=== PATIENT | female | born 1955 | race Caucasian/White ===

== ENCOUNTER 2022-03-07 15:07 | Inpatient (IN) | payer MEDICARE ==
[~2022-03-07] VITALS: Ht 170.2 cm; Wt 77.0 kg
[2022-03-07] VITALS (15 sets, daily range): BP systolic 83–139; BP diastolic 37–95
--- NOTE | 2022-03-07 15:19 | NUR ---
PATIENT TO ROOM 14 VIA EMS
--- NOTE | 2022-03-07 15:57 | NUR ---
PATIENT ARRIVED TO ED WITH C/O CHEST PRESSURE SINCE YESTERDAY. PATIENT STATED CHEST PRESSURE IS LOCATED MIDSTERNAL. PATIENT STATED SHE HAS NOT EATEN IN ABOUT THREE DAYS
[2022-03-07] MEDS ORDERED: METOPROLOL SUCC50 MG PO (16:01)
[2022-03-07] MEDS ORDERED: METOPROL TAR100 MG PO (16:04)
[2022-03-07] MEDS ORDERED: LIPITOR40 M1 PO (16:06)
[2022-03-07] MEDS ORDERED: LEVOTHYROXIN25 MC1 PO (16:06)
[2022-03-07] MEDS ORDERED: LASIX 40 MG TAB40 MG PO (16:07)
[2022-03-07] MEDS ORDERED: DIGOXIN0.125 MG PO (16:07)
[2022-03-07 16:16] LABS: HEMATOCRIT 37.5 % (37.0-47.0); HEMOGLOBIN 13.2 g/dl (12.0-16.0); IMMATURE GRANULOCYTES 0.2 % (0.0-5.0); MEAN CELL VOLUME 95.4 fL CALC (80.0-100.0); MEAN CORPUSCULAR HGB 33.6 pG CALC (26.0-32.0); MEAN CORPUSCULAR HGB CONC 35.2 g/dL CAL (32.0-36.0); NEUT# 7.6 thou/uL (2.00-7.15); RED BLOOD COUNT 3.93 mill/uL (4.20-5.60); RED CELL DISTRI WIDTH 12.9 % (11.5-15.5)
[2022-03-07 16:31] LABS: ALBUMIN 3.8 g/dL (3.2-5.0); ALKALINE PHOSPHATASE 110 u/l (38-126); ANION GAP 12 (6-22 (CALC)); BUN 9 mg/dL (8-23); BUN/CREATININE RATIO 12 (12-20 (CALC)); CARBON DIOXIDE 35 mmol/l (22-30); CHLORIDE 82 mmol/l (95-108); CREATININE 0.7 mg/dL (0.5-1.0); GFR FOR AFR.AMER. > 60 ML/MIN (>=60 (CALC)); GFR OTHER RACES > 60 ML/MIN (>=60 (CALC)); POTASSIUM 2.5 mmol/l (3.5-5.1); SGOT/AST 41 u/l (9-36); SODIUM 127 mmol/l (137-146); TOTAL PROTEIN 6.6 g/dL (6.3-8.2)
--- NOTE | 2022-03-07 16:32 | NUR ---
ASSUMED CARE OF PATIENT, REPORT RECEIVED FROM RN. PATIENT IN NAD.
--- NOTE | 2022-03-07 16:33 | NUR ---
REASSESSED. NAD. VITALS STABLE. CALL LIGHT IN REACH
--- NOTE | 2022-03-07 16:34 | NUR ---
REPORT GIVEN TO ABE CABALLERO
[2022-03-07 16:52] LABS: URINE BLOOD DIPSTICK NEGATIVE (NEGATIVE); URINE COLOR YELLOW; URINE GLUCOSE - DIPSTICK NEGATIVE (NEGATIVE); URINE KETONE TRACE mg/dL (NEGATIVE); URINE LEUK ESTERASE NEGATIVE (NEGATIVE); URINE PROTEIN - DIPSTICK TRACE mg/dL (NEG-TRACE); URINE SPECIFIC GRAVITY <=1.005
[2022-03-07 16:57] LABS: URINE BILIRUBIN - DIPSTICK SMALL (NEGATIVE); URINE NITRITE - DIPSTICK NEGATIVE (Negative)
--- NOTE | 2022-03-07 23:15 | NUR ---
RECEIVED PATIENT VIA STRETCHER FROM ED AND REPORT BY RN ALEXANDRA AT THIS TIME. PATIENT IS ALERT AND ORIENTED AT THIS TIME X 3. PATIENT REPOSITIONED IN ICU BED AND SCALE WEIGHT OBTAINED AT THIS TIME. RN PATIENT ASSESSMENT DONE SEE INTERVENTIONS. LUNG LOPEZ ARE CLEAR, AND BOWEL SOUNDS ARE PRESENT IN ALL QUADS AND PATIENT STATED SHE DID HAVE A BOWEL MOVEMENT PRIOR TO ADMISSION AND STATED IS WAS SOFT. PATIENT STATES SHE SMOKES CIGARETTES 1-2 A DAY AND DRINKS ALCOHOLO 2-3 DRINKS 3 TIME A WEEK. PATINET PRESENTS WITH SKIN INTACT AND NO SIGNS OF EDEMA PRESENT. PATIENT DOES PRESENT WITH TWO IV SITES AND THERE IS NO SIGN OF REDDNESS AT THIS TIME. PATIENT GIVEN ROOM ORIENTATION AND FALL ORIENTATION AND FALL SHEET AGREEMENT SIGNED. PATIENT PRESENTS WITH AFIB AND SNUS BAILEY SHOWINIG ON PLANER TAILER WITH HEART RATE OF 47. PATIENT DENEIS ANY PAIN AND OR SHORTNES OF BREATH AT THIS TIME. SIDERAILS ARE UP X 2 AND CALL LIGHT WITHIN REACH AND PERSONAL ITEMS ARE WITHIN REACH.
[2022-03-08] VITALS (42 sets, daily range): BP systolic 68–138; BP diastolic 27–96
--- NOTE | 2022-03-08 02:00 | NUR ---
PATEINT LAYING IN BED AT THIS TIME PATIENT ALERT AND ORIENTED AT THIS TIME. PATIENT'S BP IS 91/36 AND HEART RATE ID SINUS BAILEY/AFIB AT 47. WHEN ASKED IF PATIENT HAS EVER TAKEN A ANTICOAGULANT SHE STATE "YES" "BUT I STOPPED USING THEM". PATIENT GIVEN EDUCATION ON ANTICOAGULANTS AND AFIB. SIDERAILS ARE UP CALL LIGHT WITHIN REACH.
--- NOTE | 2022-03-08 04:12 | NUR ---
PATIENT LAYING IN BED WITH EYES CLOSED AT THIS TIME. RESPIRATIONS ARE EASY AND UNLABORED WAXER SHOWING AFIB SB AND HEART RATE OF 57 BP IS 109/32 SIDERAILS ARE UP CALL LIGHT IS WITHIN REACH. WILL CONTINUE TO MONITOR.
--- NOTE | 2022-03-08 04:50 | NUR ---
RICHARD CALLED FROM LAB TO REPORT CRITICAL TROPONIN OF 0.122 DR. PALAFOX NOTIFIED.
--- NOTE | 2022-03-08 06:17 | NUR ---
PATIENT RESTING IN BED PRODUCT SAFETY TECHNICIAN READING AFIB SB AND HR 47 BP IS 96/45 SIDRAILS ARE UP CALL LIGHT NEAR.
--- NOTE | 2022-03-08 11:45 | NUR ---
REPORT RCEIVED FROM DAKSHA FISH.
[2022-03-08] MEDS ORDERED: MILK THISTL2 PO (13:07)
[2022-03-08] MEDS ORDERED: MULT VITAMI1 PO (13:07)
[2022-03-08] MEDS ORDERED: IRON (FERROUS S50 MG PO (13:08)
[2022-03-08] MEDS ORDERED: B1100 MG PO (13:10)
[2022-03-08] MEDS ORDERED: B6 FOLIC ACD PO (13:11)
[2022-03-08] MEDS ORDERED: B121000 MC1 PO (13:11)
[2022-03-08] MEDS ORDERED: TUMS500 MG PO (13:12)
[2022-03-08 13:19] LABS: ANION GAP 12 (6-22 (CALC)); BUN 11 mg/dL (8-23); BUN/CREATININE RATIO 13 (12-20 (CALC)); CARBON DIOXIDE 32 mmol/l (22-30); CHLORIDE 87 mmol/l (95-108); CREATININE 0.8 mg/dL (0.5-1.0); GFR FOR AFR.AMER. > 60 ML/MIN (>=60 (CALC)); GFR OTHER RACES > 60 ML/MIN (>=60 (CALC)); MAGNESIUM 1.5 mg/dL (1.6-2.3); POTASSIUM 2.7 mmol/l (3.5-5.1); SODIUM 128 mmol/l (137-146)
--- NOTE | 2022-03-08 14:00 | NUR ---
PATIENT IS UP WATCHING TV.
--- NOTE | 2022-03-08 16:00 | NUR ---
PATIENT STATED SHE WAS GOING TO TRY AND TAKE A QUICK NAP .
--- NOTE | 2022-03-08 18:11 | NUR ---
PATIENT SITTING UP EATING DINNER.
--- NOTE | 2022-03-08 19:52 | NUR ---
PATIENT RESTING IN BED AT THIS TIME. PATIENT DENIES ANY NEEDS CURRENTLY AND OR PAIN. PATIENT ASSISTED TO BEDSIDE COMMODE AND BOWEL MOVEMENT SOFT AND BROWN OLERICULTURE PROFESSOR IS READING AFIB AND 47 RATE. PRESSURE CONTROLLER DONE SEE INTERVENTIONS. CALL LIGHT IS WITHIN REACH SIDERAILS ARE UP X 3 PATIENT ALERT AND ORIENTED.
--- NOTE | 2022-03-08 22:00 | NUR ---
PATIENT SITTING UP IN BED WATCHING TV AND TALKING ON PHONE REI ANY NEEDS CUT FILE CLERK READING SB AND HR IS 58 SPO2 IS CURRENTLY 90% SIDERAILS ARE UP CALL LIGHT WITHIN REACH
--- NOTE | 2022-03-08 23:51 | NUR ---
BEN LAYING IN BED RESTING WIHTOUT ISSUES. NATURALIST READY SR WITH A HR OF 66 SIDERAILS ARE UP X 2 CALL LIGHT WITH IN REACH. PATIENT DENIES ANY PIAN. WILL CONTINUE TO MONITOR.
[2022-03-09] VITALS (31 sets, daily range): BP systolic 87–149; BP diastolic 26–91
--- NOTE | 2022-03-09 01:54 | NUR ---
PATIENT RESTING IN BED CAFETERIA ATTENDANT READING SINUS BAILEY AT 49. RESPIRATIONS EASY AND UNLABORED DENIES ANY PAIN SIDERAILS ARE UP X 2 WILL CONTINUE TO MONITOR
--- NOTE | 2022-03-09 04:06 | NUR ---
PATIENT LAYING IN BED AT THIS TIME WITH EYES CLOSED AND RESPIRATIONS ARE EASY AND UNLABORED AT THIS TIME MOBILE EQUIPMENT MECHANIC IS READING SB AND HR IS 49 SIDERAILS ARE UP CALL LIGHT WITHIN [facility].
[2022-03-09 05:31] LABS: MEAN CELL VOLUME 99.7 fL CALC (80.0-100.0); MEAN CORPUSCULAR HGB 33.9 pG CALC (26.0-32.0); RED BLOOD COUNT 3.04 mill/uL (4.20-5.60); RED CELL DISTRI WIDTH 13.3 % (11.5-15.5)
[2022-03-09 05:34] LABS: HEMATOCRIT 30.3 % (37.0-47.0); HEMOGLOBIN 10.3 g/dl (12.0-16.0)
[2022-03-09 05:45] LABS: ANION GAP 10 (6-22 (CALC)); BUN 6 mg/dL (8-23); BUN/CREATININE RATIO 9 (12-20 (CALC)); CALCULATED LDLCHOLESTEROL 55 mg/dL (62-129 (CALC)); CARBON DIOXIDE 32 mmol/l (22-30); CHLORIDE 94 mmol/l (95-108); CREATININE 0.7 mg/dL (0.5-1.0); GFR FOR AFR.AMER. > 60 ML/MIN (>=60 (CALC)); GFR OTHER RACES > 60 ML/MIN (>=60 (CALC)); HDL CHOLESTEROL 53 mg/dL (>=40); MAGNESIUM 1.4 mg/dL (1.6-2.3); POTASSIUM 2.5 mmol/l (3.5-5.1); SODIUM 134 mmol/l (137-146); TOTAL CHOLESTEROL 141 mg/dl (0-199); TOTAL TRIGLYCERIDES 162 mg/dl (30-149); VLDL CHOLESTROL 32 mg/dl (1-41 (CALC))
--- NOTE | 2022-03-09 06:00 | NUR ---
PATIENT LAYING IN BED MORNING SCHEDULED MEDS GIVEN. BOARD CERTIFIED FAMILY PHYSICIAN IS SHOWING SINUS BAILEY AT 45 CALL LIGHT IS WITHIN REACH SIDERAILS ARE UP X 2
--- NOTE | 2022-03-09 08:00 | NUR ---
R'CD REPORT FROM OLIVIA RN, PT AWAKE AND WATCHING TV, PT DENIES ANY PAIN/CHEST PAIN AT THIS TIME, PT ORIENTED X4, PT R'CD BREAKFAST AND IS SITTING ON THE SIDE OF THE BED EATING.
--- NOTE | 2022-03-09 10:16 | NUR ---
PT CURRENTLY IN BED WATCHING TV, NO COMPLAINTS AT THIS TIME, BED IN LOWEST POSITION, CALL LIGHT AT BEDSIDE.
--- NOTE | 2022-03-09 12:27 | NUR ---
PT SITTING UP IN BED ON THE PHONE WITH FAMILY, PT NOT IN DISTRESS, DENIES ANY PAIN/CHEST PAIN, BED IN LOWEST POSITION, CALL LIGHT AT BEDSIDE, PT LUNCH TRAY JUST BROUGHT INTO ROOM AND AT BEDSIDE, PT STATED "I WILL WAIT TO BATHE UNTIL THIS EVENING," WILL CONTINUE TO MONITOR.
--- NOTE | 2022-03-09 14:00 | NUR ---
PT CURRENTLY SLEEPING, BED IN LOWEST POSITION, CALL LIGHT WITHIN REACH, SIDE RAILS UP, WILL CONTINUE TO MONITOR.
--- NOTE | 2022-03-09 16:30 | NUR ---
PT SITTING ON THE SIDE OF THE BED WATCHING TV, PT DENIES ANY COMPLAINTS AT THIS TIME, BED IN LOWEST POSITION, WILL CONTINUE TO MONITOR.
--- NOTE | 2022-03-09 19:53 | NUR ---
PATIENT LAYING IN BED AT THIS TIME WATCING TV ALERT AND ORIENTED X 3. PATIENT DENIES ANY PAIN AT THIS TIME. LUNG LOPEZ ARE CLEAR, BOWEL SOUNDS PRESENT IN ALL FOUR QUADS. TEMP TAKE SEE INTERVENTIONS INSPECTORS AND REGULATORY OFFICERS IS SHOWING AFIB AND AND HR IS 58. MANAGER HEMATOLOGY DONE SEE INTERVENTIONS SIDERAILS ARE UP CALL LIGHT IS WITHIN REACH. WILL CONTINUE TO MONITOR.
--- NOTE | 2022-03-09 22:32 | NUR ---
PATIENT RESTING IN BED AT THIS TIME MEMS ENGINEER READING SB AT HR OF 59. PATIENT DENIES ANY NEEDS SIDERAILS ARE UP CALL LIGHT WITHIN REACH.
--- NOTE | 2022-03-09 23:57 | NUR ---
PATIENT IN BED EYES CLOSED AND RESPIRATIONS EASY AND UNLABORED AT THIS TIME. [address] VENDOR SHOWING BAILEY/A-FIB AND HR OF 55. SIDERAILS ARE UP CALL LIGHT IS WITHIN REACH WILL CONTINUE TO MONITOR.
[2022-03-10] VITALS (10 sets, daily range): BP systolic 106–142; BP diastolic 40–63
--- NOTE | 2022-03-10 02:00 | NUR ---
PATIENT RESTING IN BED ALERT AND ORIENTED X 3 STAFFING AND SCHEDULING COORDINATOR SHOWING HR SB/FIB AND HR OF 52. SIDERAILS ARE UP CALL LIGHT WITHIN REACH.
--- NOTE | 2022-03-10 04:15 | NUR ---
PATIENT LAYING IN BED AT THIS TIME CONSULTANT TEACHER READING SB AT 50, PATIENT DENIES ANY NEEDS CURRENTLY. SIDERAILS ARE UP X 2 AND CALL LIGHT IS WITHIN REACH. WILL CONTINUE TO MONITOR.
--- NOTE | 2022-03-10 05:43 | NUR ---
PATIENT AWAKE IN BED ALERT AND ORIENTED AT THIS TIME DENIES ANY NEEDS AT THIS TIME SIDERAILS ARE UP X 2 CALL LIGHT WITHIN REACH SEWER PIPE OFFBEARER IS SB AT HR OF 51 BP IS CURRENTLY 108/40 WILL CONTINUE TO MONITOR.
[2022-03-10 06:05] LABS: HEMATOCRIT 30.5 % (37.0-47.0); HEMOGLOBIN 10.3 g/dl (12.0-16.0); MEAN CELL VOLUME 100.3 fL CALC (80.0-100.0); MEAN CORPUSCULAR HGB 33.9 pG CALC (26.0-32.0); MEAN CORPUSCULAR HGB CONC 33.8 g/dL CAL (32.0-36.0); RED BLOOD COUNT 3.04 mill/uL (4.20-5.60); RED CELL DISTRI WIDTH 13.4 % (11.5-15.5)
[2022-03-10 06:34] LABS: ANION GAP 12 (6-22 (CALC)); BUN 3 mg/dL (8-23); BUN/CREATININE RATIO 5 (12-20 (CALC)); CARBON DIOXIDE 28 mmol/l (22-30); CHLORIDE 98 mmol/l (95-108); CREATININE 0.6 mg/dL (0.5-1.0); GFR FOR AFR.AMER. > 60 ML/MIN (>=60 (CALC)); GFR OTHER RACES > 60 ML/MIN (>=60 (CALC)); POTASSIUM 2.9 mmol/l (3.5-5.1); SODIUM 136 mmol/l (137-146)
[2022-03-10 06:36] LABS: MAGNESIUM 1.9 mg/dL (1.6-2.3)
[2022-03-10] MEDS ORDERED: KLOR-CON M2020 MEQ PO (08:54)
--- NOTE | 2022-03-10 11:01 | NUR ---
Pt. [id number]. Pt has gathered all belongings. Pt denies having any pain. Pt in no notable distress. Discharge instructions discused with MD at bedside. All questions answered. Pt verbalized understanding. IVs removed, pressure applied and dressing plassed. No sighnes of bleeding.
== END 2022-03-10 11:20 | disposition home or self-care (01) | DRG 313 ==
LOC: EDBD 15:07 → ED 15:07 → ED-I 15:48 → ED 15:48 → ED-I 17:14 → ED 22:33 → ICU 22:33
PROVIDERS: Family Medicine; Internal Medicine; ADMIT Internal Medicine; ATTEND Internal Medicine
PROC: 3E02340 Introduction of Influenza Vaccine into Muscle, Percutaneous Approach (ICD-10-PCS; principal; 2022-03-08)
PROC: 3E0234Z Introduction of Serum, Toxoid and Vaccine into Muscle, Percutaneous Approach (ICD-10-PCS; 2022-03-08)
DX: R07.9 Chest pain, unspecified (principal); R00.1 Bradycardia, unspecified; R79.89 Other specified abnormal findings of blood chemistry; E87.6 Hypokalemia; E83.42 Hypomagnesemia; I10 Essential (primary) hypertension; I48.91 Unspecified atrial fibrillation; J43.9 Emphysema, unspecified; E03.9 Hypothyroidism, unspecified; F17.210 Nicotine dependence, cigarettes, uncomplicated; Z59.1 Inadequate housing; Z23 Encounter for immunization; Z20.822 Contact with and (suspected) exposure to COVID-19
CPT/HCPCS: J3475